=== PATIENT | male | born 1945 | race Caucasian/White ===

== ENCOUNTER 2016-10-02 11:53 | Emergency (ER) | payer MEDICARE, OTHER ==
[~2016-10-02] VITALS: Ht 172.7 cm; Wt 100.0 kg
[2016-10-02] MEDS ORDERED: NIAC250T3 PO (12:07)
[2016-10-02] MEDS ORDERED: ASPI81TA85 PO (12:07)
[2016-10-02] MEDS ORDERED: FLUT22IN INH ×2 (12:07→13:25)
[2016-10-02] MEDS ORDERED: ATOR80TA59 PO (12:07)
[2016-10-02] MEDS ORDERED: AMLO5TAB2 PO (12:07)
[2016-10-02] MEDS ORDERED: MONT10TA2 PO (12:07)
[2016-10-02] MEDS ORDERED: LISI20TA PO (12:07)
[2016-10-02] MEDS ORDERED: ALBU17IN INH ×2 (12:07→13:25)
[2016-10-02] MEDS ORDERED: methylPREDNISolone INJ 125 MG/2 ML VIAL (J2930) IV ONE (12:30)
[2016-10-02] MEDS: IPRATROPIUM 0.5MG/ALBUTEROL 2.5MG INH SOL UD 3ML (DUONEB)(J7620) NEB PRN ×3 (12:35→13:20)
[2016-10-02 12:37] LABS: BASO # 0.1 K/mm3 (0.0-0.2); EOS # 0.6 K/mm3 (0.0-0.50); EOS % 9.6 % (0.0-3.0); LARGE UNSTAINED CELL # 0.1 K/mm3 (0.0-0.4); LARGE UNSTAINED CELL % 2.1 % (0.0-4.0); LYMPH # 1.2 K/mm3 (1.5-4.5); LYMPH % 17.7 % (24.0-44.0); MEAN CORPUSCULAR HEMOGLOBIN 30.5 pg (27.0-33.0); MEAN CORPUSCULAR HGB CONC 34.2 g/dl (32.0-36.5); MONO # 0.5 K/mm3 (0.0-0.8); MONO % 7.3 % (0.0-5.0); NEUTROPHILS # 3.9 K/mm3 (1.8-7.7); NEUTROPHILS % 62.3 % (36.0-66.0); PLATELET COUNT, AUTOMATED 227 k/mm3 (150-450); WHITE BLOOD COUNT 6.2 K/mm3 (4.0-10.0)
[2016-10-02 13:05] LABS: ALBUMIN 4.1 GM/DL (3.2-5.2); ALBUMIN/GLOBULIN RATIO 1.11 (1.00-1.93); ALKALINE PHOSPHATASE 57 U/L (45-117); ALT/SGPT 38 U/L (12-78); ANION GAP 6 MEQ/L (8-16); AST/SGOT 20 U/L (15-37); BILIRUBIN,DIRECT 0.2 MG/DL (0.0-0.2); BILIRUBIN,TOTAL 0.8 MG/DL (0.2-1.0); BLOOD UREA NITROGEN 16 MG/DL (7-18); CALCIUM LEVEL 9.4 MG/DL (8.8-10.2); CARBON DIOXIDE LEVEL 29 MEQ/L (21-32); CHLORIDE LEVEL 105 MEQ/L (98-107); CREATININE FOR GFR 0.93 MG/DL (0.70-1.30); GLOMERULAR FILTRATION RATE > 60.0 (>42); GLUCOSE, FASTING 132 MG/DL (83-110); SODIUM LEVEL 140 MEQ/L (136-145); THYROXINE (T4) 16.5 UG/DL (4.5-12.0); TOTAL PROTEIN 7.8 GM/DL (6.4-8.2)
--- NOTE | 2016-10-02 13:07 | REP ---
PA and lateral chest: There are no comparisons. The lung g[place] are clear. The cardiac size is normal The [place], mediastinum, and bony thorax are unremarkable. Impression: Negative PA and lateral chest. Signed by Leif Lord MD 10/02/2016 12:58 P
[2016-10-02] MEDS ORDERED: PRED20TA PO (13:25)
[2016-10-02 13:27] VITALS: BP 149/61
--- NOTE | 2016-10-02 15:11 | ECGEPIP ---
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
== END 2016-10-02 13:43 | disposition home or self-care (01) ==
LOC: M ED 11:53
DX: J44.1 Chronic obstructive pulmonary disease with (acute) exacerbation (principal); J06.9 Acute upper respiratory infection, unspecified; E05.90 Thyrotoxicosis, unspecified without thyrotoxic crisis or storm; E11.9 Type 2 diabetes mellitus without complications; Z87.891 Personal history of nicotine dependence; Z79.82 Long term (current) use of aspirin; Z79.899 Other long term (current) drug therapy
CPT/HCPCS: 36415; 71020; 80048; 80076; 84436; 84443; 85025; 86140; 87486; 87581; 87633; 87798; 93005; 93041; 94640; 94760; 96374; 99285; J2930

== ENCOUNTER 2016-10-20 07:52 | Emergency (ER) | payer MEDICARE ==
[~2016-10-20] VITALS: Ht 172.7 cm; Wt 99.1 kg
[~2016-10-20 07:52] MED LIST: ALBU17IN INH; AMLO5TAB2 PO; ASPI81TA85 PO; ATOR80TA59 PO; FLUT22IN INH; LISI20TA PO; MONT10TA2 PO; NIAC250T3 PO; PRED20TA PO
[2016-10-20 09:46] LABS: BASO % 0.3 % (0.0-1.0); EOS # 0.2 K/mm3 (0.0-0.50); EOS % 2.7 % (0.0-3.0); LARGE UNSTAINED CELL # 0.1 K/mm3 (0.0-0.4); LARGE UNSTAINED CELL % 1.2 % (0.0-4.0); LYMPH # 1.1 K/mm3 (1.5-4.5); LYMPH % 12.4 % (24.0-44.0); MEAN CORPUSCULAR HEMOGLOBIN 30.6 pg (27.0-33.0); MEAN CORPUSCULAR HGB CONC 35.2 g/dl (32.0-36.5); MONO # 0.5 K/mm3 (0.0-0.8); MONO % 5.1 % (0.0-5.0); NEUTROPHILS # 7.1 K/mm3 (1.8-7.7); NEUTROPHILS % 78.4 % (36.0-66.0); PLATELET COUNT, AUTOMATED 260 k/mm3 (150-450); RED CELL DISTRIBUTION WIDTH 12.8 % (11.5-14.5); WHITE BLOOD COUNT 9.1 K/mm3 (4.0-10.0)
--- NOTE | 2016-10-20 09:57 | REP ---
ABDOMEN SERIES: Three views. HISTORY: Abdominal cramping. Comparison study October 02, 2016. FINDINGS: Upright chest radiograph is unremarkable. There is no evidence of free subdiaphragmatic air or infiltrate. There is some linear plate-like atelectasis in the left base mild in degree. Heart is not enlarged. EKG electrodes are seen. Supine erect views of the abdomen demonstrate a normal bowel gas pattern. No mass, organomegaly, or pathologic calcification is seen. IMPRESSION: Unremarkable bowel gas pattern. Minimal plate-like atelectasis left base. Signed by Martínez Barboza MD 10/20/2016 01:40 P
[2016-10-20 09:58] LABS: ALBUMIN 3.7 GM/DL (3.2-5.2); ALBUMIN/GLOBULIN RATIO 1.12 (1.00-1.93); ALKALINE PHOSPHATASE 55 U/L (45-117); ALT/SGPT 41 U/L (12-78); ANION GAP 9 MEQ/L (8-16); AST/SGOT 14 U/L (15-37); BILIRUBIN,DIRECT 0.2 MG/DL (0.0-0.2); BILIRUBIN,TOTAL 0.8 MG/DL (0.2-1.0); BLOOD UREA NITROGEN 26 MG/DL (7-18); CALCIUM LEVEL 9.1 MG/DL (8.8-10.2); CARBON DIOXIDE LEVEL 27 MEQ/L (21-32); CHLORIDE LEVEL 100 MEQ/L (98-107); CREATININE FOR GFR 1.11 MG/DL (0.70-1.30); FREE T4 1.81 NG/DL (0.76-1.46); GLOMERULAR FILTRATION RATE > 60.0 (>42); GLUCOSE, FASTING 204 MG/DL (83-110); POTASSIUM SERUM 4.2 MEQ/L (3.5-5.1); SODIUM LEVEL 136 MEQ/L (136-145)
[2016-10-20 11:33] VITALS: BP 153/68
[2016-10-20] MEDS ORDERED: METF500T13 PO (11:58)
--- NOTE | 2016-10-21 09:25 | ECGEPIP ---
Stationary ECG Study [facility] - ED Test Date: 2016-10-20 Pat Name: JUAN AZEVEDO Department: Room: - Gender: M Gm: JCora : 1945 Requested By: Sancho Jefferson Order Number: [id number] Reading MD: Jazmin Hawthorne Measurements Intervals [place] Rate: 53 P: 48 [place]: 104 QRS: 55 QRSD: 92 T: 78 QT: 411 QTc: 388 Interpretive Statements SINUS BRADYCARDIA WITH SHORT [place] INTERVAL DECREASED RATE 10/02/16 Electronically Signed On 10-21-2016 9:25:12 EDT by Jazmin Hawthorne
== END 2016-10-20 12:17 | disposition home or self-care (01) ==
LOC: M ED 07:52
DX: E05.90 Thyrotoxicosis, unspecified without thyrotoxic crisis or storm (principal); E11.65 Type 2 diabetes mellitus with hyperglycemia; J98.11 Atelectasis; R00.1 Bradycardia, unspecified; E03.9 Hypothyroidism, unspecified; J44.9 Chronic obstructive pulmonary disease, unspecified; I10 Essential (primary) hypertension; F17.200 Nicotine dependence, unspecified, uncomplicated; Z79.84 Long term (current) use of oral hypoglycemic drugs; Z79.82 Long term (current) use of aspirin; Z79.899 Other long term (current) drug therapy

== ENCOUNTER → 2016-11-08 | Outpatient (CLI) | payer MEDICARE ==
[~2016-11-08] MED LIST changes: +METF500T13 PO
--- NOTE | 2016-11-09 11:52 | REP ---
NUCLEAR THYROID UPTAKE AND SCAN: Following the oral administration of 408 microcuries iodine 123 as sodium iodine, thyroid uptake is measured. 24-hour uptake is 1.4%, which is below normal range of 25-35%. Thyroid scan shows both lobes to measure 4-5 cm in length. There is poor uptake bilaterally without any discrete focal hot or cold nodule identified scintigraphically. IMPRESSION: Diminished 24-hour uptake at 1.4%. Signed by Leif Trujillo MD 11/09/2016 01:49 P
== END ==
LOC: M RAD 08:44
PROVIDERS: ATTEND Family Medicine
DX: E05.90 Thyrotoxicosis, unspecified without thyrotoxic crisis or storm (principal)
CPT/HCPCS: 78012; A9516

== ENCOUNTER 2017-04-03 23:11 | Emergency (ER) | payer MEDICARE ==
[2017-04-04] MEDS: dexameTHASONE 20 MG/5 ML VIAL (J1100) IV (00:27)
[2017-04-04 00:41] LABS: BASO # 0.1 10^3/uL (0.0-0.2); BASO % 1.3 % (0.0-1.0); EOS # 0.8 10^3/uL (0.0-0.50); EOS % 10.6 % (0.0-3.0); HEMATOCRIT 44.3 % (42.0-52.0); HEMOGLOBIN 15.2 g/dl (14.0-18.0); IMMATURE GRANULOCYTE % 0.3 % (0-3.0); LYMPH # 1.2 10^3/uL (1.5-4.5); LYMPH % 15.8 % (24.0-44.0); MEAN CORPUSCULAR HEMOGLOBIN 30.9 pg (27.0-33.0); MEAN CORPUSCULAR HGB CONC 34.3 g/dl (32.0-36.5); MONO # 0.7 10^3/uL (0.0-0.8); NEUTROPHILS # 4.8 10^3/uL (1.8-7.7); PLATELET COUNT, AUTOMATED 239 10^3/uL (150-450); RED BLOOD COUNT 4.92 10^6/uL (4.30-6.10); RED CELL DISTRIBUTION WIDTH 12.7 % (11.5-14.5); WHITE BLOOD COUNT 7.6 10^3/uL (4.0-10.0)
[2017-04-04] MEDS: ALBUTEROL SULFATE 2.5 MG/0.5 ML INH NEB SOLN INH ×3 (00:43→01:00)
[2017-04-04 00:45] LABS: ANION GAP 6 MEQ/L (8-16); BLOOD UREA NITROGEN 23 MG/DL (7-18); CALCIUM LEVEL 9.6 MG/DL (8.8-10.2); CARBON DIOXIDE LEVEL 27 MEQ/L (21-32); CHLORIDE LEVEL 103 MEQ/L (98-107); CREATININE FOR GFR 1.01 MG/DL (0.70-1.30); GLOMERULAR FILTRATION RATE > 60.0 (>42); GLUCOSE, FASTING 130 MG/DL (70-100); POTASSIUM SERUM 4.3 MEQ/L (3.5-5.1); SODIUM LEVEL 136 MEQ/L (136-145)
[2017-04-04 01:19] LABS: INFLUENZA A AMPLIFICATION NEGATIVE (NEGATIVE); INFLUENZA B AMPLIFICATION NEGATIVE (NEGATIVE); RSV AMPLIFICATION NEGATIVE (NEGATIVE)
[2017-04-04] MEDS: NS 500 ML IV (01:30)
[2017-04-04] MEDS: IPRATROPIUM 0.5MG/ALBUTEROL 2.5MG INH SOL UD 3ML (DUONEB)(J7620) NEB (02:32)
== END 2017-04-04 03:11 | disposition home or self-care (01) ==
LOC: M ED 23:11
DX: J20.9 Acute bronchitis, unspecified (principal); J44.9 Chronic obstructive pulmonary disease, unspecified; E11.9 Type 2 diabetes mellitus without complications; I10 Essential (primary) hypertension; Z87.891 Personal history of nicotine dependence; Z79.82 Long term (current) use of aspirin; Z79.84 Long term (current) use of oral hypoglycemic drugs; Z79.899 Other long term (current) drug therapy
CPT/HCPCS: J1100